=== PATIENT | female | born 1960 | race African-American/Black ===

== ENCOUNTER 2023-08-10 16:00 | Outpatient (CLI) | payer MEDICARE | END 2023-08-10 16:01 | disposition home or self-care (01) | LOC: SLEEPLAB 16:00 | PROVIDERS: ATTEND Family Medicine | DX: G47.33 Obstructive sleep apnea (adult) (pediatric) (principal); G47.9 Sleep disorder, unspecified; R53.83 Other fatigue; R06.83 Snoring; E66.9 Obesity, unspecified; Z68.41 Body mass index [BMI] 40.0-44.9, adult | CPT/HCPCS: 95811 ==